=== PATIENT | female | born 2000 | race Caucasian/White ===

== ENCOUNTER 2021-01-19 03:04 | Emergency (ER) | payer OTHER ==
[~2021-01-19] VITALS: Ht 152.4 cm; Wt 47.6 kg
[2021-01-19 03:06] VITALS: BP 114/69
--- NOTE | 2021-01-19 03:06 | NUR ---
TO BED AMBULATORY
--- NOTE | 2021-01-19 03:10 | NUR ---
PT. IS A 20 Y/O FEMALE THAT CAME INTO ED WITH C/O OF FLANK PAIN. PT. STATES FOR FOUR DAYS NOW HER LEFT SIDE ABDOMEN HAS PAIN AND RADIATES TO HER LOWER BACK. PT. RATES PAIN 6/10 ON THE PAIN SCALE AT THIS TIME. DENIES N/V/FEVER, BUT ADMITS TO DIARRHEA. PT. ALSO STATE THAT TODAY SHE HAS BURNING SENSATION UPON URINATION. SKIN IS PINK/WARM/DRY; AAOX4 WITH EVEN AND STEADY GAIT; HR EVEN AND REGULAR; PT DENIES ANY FEVER, CP, SOB, OR COUGH AT THIS TIME; VSS; PATIENT POSITIONED FOR COMFORT; HOB ELEVATED; BEDRAILS UP X1; BED DOWN. ER MD MADE AWARE OF PT STATUS. PMH: DENIES ALLERGIES: JOSY
[2021-01-19 03:27] LABS: APPEARANCE,URINE CLEAR (CLEAR); BILIRUBIN,URINE NEGATIVE (NEGATIVE); BLOOD, URINE 2+ (NEGATIVE); COLOR,URINE YELLOW (YELLOW); LEUKOCYTE ESTERASE ,URINE NEGATIVE (NEGATIVE); NITRITE, URINE NEGATIVE (NEGATIVE); UGLUCOSE NEGATIVE (NEGATIVE)
[2021-01-19 03:40] LABS: RBC,URINE 0-5 /HPF (0-5); WBC,URINE 0-5 /HPF (0-5)
[2021-01-19] MEDS: ALUMINUM HYD/MAG/SIMETHICONE 30 ML UDC PO ONE (03:53)
--- NOTE | 2021-01-19 04:17 | NUR ---
PT. SITTING ON BED WITH PHONE ON HAND; NO DISTRESS NOTED. AWAITING DISPOSITION
[2021-01-19] MEDS ORDERED: FAMO-92 PO (04:27)
[2021-01-19 04:31] VITALS: BP 114/69
== END 2021-01-19 04:31 | disposition home or self-care (01) ==
LOC: MED 03:04
DX: K25.9 Gastric ulcer, unspecified as acute or chronic, without hemorrhage or perforation (principal); R11.0 Nausea; Z79.899 Other long term (current) drug therapy
CPT/HCPCS: 81001; 81025; 99283